=== PATIENT | female | born 2000 | race Two or more races ===

== ENCOUNTER 2025-08-11 14:05 | Outpatient (CLI) | payer OTHER ==
[2025-08-11 13:05] VITALS: BP 111/67
[~2025-08-11 14:05] MED LIST: ACETAMINOPHEN500 M1 PO; GILTUSS HONEY118 ML PO; MACROBID 100 M100 MG PO; MECLIZINE HCL25 MG PO; PEPCID AC20 MG PO; PROTONIX40 MG PO; ZOFRAN8 MG PO
[2025-08-11] MEDS ORDERED: RINGERS SOLUTION,LACTATED 1,000 ML IV SCH (14:30)
[2025-08-11 14:49] LABS: BASO % 0.2 % (0.1-1.2); EOS # 0.16 (0.04-0.54); EOS % 1.5 % (0.7-7.0); LYMPH # 1.71 (1.18-3.74); LYMPH % 15.8 % (19.3-53.1); MEAN PLATELET VOLUME 10.00 fl (9.4-12.4); MONO # 0.83 (0.24-0.82); MONO % 7.7 % (4.7-12.5); NEUT # 7.96 (1.56-6.13); NEUT % 73.7 % (34.0-71.1); RED CELL DISTRIBUTION WIDTH 12.8 % (11.6-14.4)
[2025-08-11 15:12] LABS: URINE APPEARANCE Cloudy; URINE BILIRRUBIN Negative (NEGATIVE); URINE BLOOD Trace; URINE COLOR Yellow; URINE GLUCOSE Negative (NEGATIVE); URINE KETONE Negative (NEGATIVE); URINE LEUKOCYTE Large; URINE NITRATE Negative; URINE PROTEIN Trace (NEGATIVE); URINE UROBILINOGEN 0.2 E.U./dl
[2025-08-11 15:13] LABS: URINE EPITHELIAL CELLS 124.4 uL (0.0-38.8); URINE RBC 20.9 uL (0.0-20.8); URINE WBC 270.6 uL (0.0-23.2)
[2025-08-11 15:32] LABS: URINE BACTERIA > 9821.5 uL (0.0-1933); URINE CAST 0.29 uL (0.0-1.40)
[2025-08-11 15:33] LABS: URINE YEAST MANY /hpf
[2025-08-11 15:48] VITALS: BP 115/71
[2025-08-11 17:30] VITALS: BP 115/71
== END 2025-08-11 17:30 | disposition home or self-care (01) ==
LOC: OBS/DEL 14:05
PROVIDERS: ATTEND Obstetrics & Gynecology
DX: O36.8130 Decreased fetal movements, third trimester, not applicable or unspecified (principal); O26.849 Uterine size-date discrepancy, unspecified trimester; O36.60X0 Maternal care for excessive fetal growth, unspecified trimester, not applicable or unspecified; Z3A.34 34 weeks gestation of pregnancy

== ENCOUNTER 2025-09-19 21:22 | Outpatient (CLI) | payer OTHER ==
[~2025-09-19] VITALS: Ht 165.1 cm; Wt 106.6 kg
[2025-09-19 20:31] VITALS: BP 129/71
[2025-09-19] MEDS ORDERED: RINGERS SOLUTION,LACTATED 1,000 ML IV SCH (21:45)
[2025-09-19 21:52] LABS: URINE APPEARANCE Cloudy; URINE BILIRRUBIN Negative (NEGATIVE); URINE BLOOD Negative; URINE COLOR Yellow; URINE GLUCOSE Negative (NEGATIVE); URINE KETONE Negative (NEGATIVE); URINE LEUKOCYTE Small; URINE NITRATE Negative; URINE PROTEIN Negative (NEGATIVE); URINE UROBILINOGEN 0.2 E.U./dl
[2025-09-19 21:54] LABS: BASO % 0.3 % (0.1-1.2); EOS # 0.09 (0.04-0.54); EOS % 1.0 % (0.7-7.0); LYMPH # 1.80 (1.18-3.74); LYMPH % 19.8 % (19.3-53.1); MEAN PLATELET VOLUME 9.90 fl (9.4-12.4); MONO # 0.81 (0.24-0.82); MONO % 8.9 % (4.7-12.5); NEUT # 6.27 (1.56-6.13); NEUT % 69.1 % (34.0-71.1); RED CELL DISTRIBUTION WIDTH 14.1 % (11.6-14.4); URINE EPITHELIAL CELLS 103.8 uL (0.0-38.8); URINE RBC 44.4 uL (0.0-20.8); URINE WBC 237.8 uL (0.0-23.2)
[2025-09-19 22:05] LABS: URINE CAST 0.29 uL (0.0-1.40); URINE YEAST FEW /hpf
[2025-09-19] MEDS ORDERED: PRENATAL + DHA1 EACH PO (22:45)
[2025-09-19 23:22] VITALS: BP 113/72
[2025-09-20 03:55] VITALS: BP 121/67
[2025-09-20 07:54] VITALS: BP 136/69
[2025-09-20 10:25] VITALS: BP 90/53
[2025-09-20 15:13] VITALS: BP 106/56
[2025-09-20 19:32] VITALS: BP 126/77; O2SAT 99
== END 2025-09-20 19:32 | disposition home or self-care (01) ==
LOC: OBS/DEL 21:22
PROVIDERS: ATTEND Obstetrics & Gynecology
DX: O36.8130 Decreased fetal movements, third trimester, not applicable or unspecified (principal); O26.843 Uterine size-date discrepancy, third trimester; Z3A.38 38 weeks gestation of pregnancy

== ENCOUNTER 2025-09-26 17:19 | Inpatient (IN) | payer OTHER ==
[~2025-09-26] VITALS: Ht 165.1 cm; Wt 106.6 kg
[2025-09-26 16:59] VITALS: BP 110/63
[~2025-09-26 17:19] MED LIST changes: +PRENATAL + DHA1 EACH PO
[2025-09-26] MEDS ORDERED: AMPICILLIN SODIUM 2,000 MG VIAL IV STA (17:33)
[2025-09-26] MEDS ORDERED: RINGERS SOLUTION,LACTATED 1,000 ML IV SCH (17:45)
[2025-09-26 17:53] LABS: URINE APPEARANCE Cloudy; URINE BILIRRUBIN Negative (NEGATIVE); URINE BLOOD Moderate; URINE COLOR Yellow; URINE GLUCOSE Negative (NEGATIVE); URINE KETONE Trace (NEGATIVE); URINE LEUKOCYTE Trace; URINE NITRATE Negative; URINE PROTEIN Trace (NEGATIVE); URINE UROBILINOGEN 0.2 E.U./dl
[2025-09-26 17:54] LABS: BASO % 0.2 % (0.1-1.2); EOS # 0.06 (0.04-0.54); EOS % 0.6 % (0.7-7.0); LYMPH # 1.50 (1.18-3.74); LYMPH % 15.4 % (19.3-53.1); MEAN PLATELET VOLUME 10.20 fl (9.4-12.4); MONO # 0.77 (0.24-0.82); MONO % 7.9 % (4.7-12.5); NEUT # 7.30 (1.56-6.13); NEUT % 75.2 % (34.0-71.1); RED CELL DISTRIBUTION WIDTH 14.3 % (11.6-14.4); URINE BACTERIA 89.9 uL (0.0-1933); URINE EPITHELIAL CELLS 18.6 uL (0.0-38.8); URINE RBC 312.8 uL (0.0-20.8); URINE WBC 118.7 uL (0.0-23.2)
[2025-09-26 17:58] LABS: URINE CAST 0.14 uL (0.0-1.40)
[2025-09-26 18:13] LABS: INR < 0.93
[2025-09-26 18:18] LABS: ALT/SGPT 13.0 U/L (12-78); AST/SGOT 18.0 U/L (15-37); BILIRUBIN TOTAL 0.38 mg/dL (0.3-1.2); BUN CREA RATIO 15.0 (7.0-25.0); CREATININE SERUM 0.75 mg/dL (0.55-1.02); GFR 95.76; GLOBULINA 3.4 G/DL (2.4-3.5); GLUCOSE FASTING 89.0 mg/dL (65-100); OSMOLALITY SERUM 278.0 MOSM/KG (275-295)
[2025-09-26] MEDS ORDERED: MISOPROSTOL 25 MCG TABLET VAG STA (18:51)
[2025-09-26 21:00] VITALS: BP 109/72
[2025-09-26] MEDS ORDERED: AMPICILLIN SODIUM 1,000 MG VIAL IV SCH (21:00)
[2025-09-26] MEDS ORDERED: MORPHINE SULFATE 4 MG/ML CARTRIDGE IV ONE (21:30)
[2025-09-26 23:56] VITALS: BP 115/66
[2025-09-27] VITALS (8 sets, daily range): BP systolic 112–124; BP diastolic 56–76
[2025-09-27] MEDS ORDERED: ERYTHROMYCIN BASE OPHT 1GM EACH TUBE OP ONE (00:30)
[2025-09-27] MEDS ORDERED: LIDOCAINE HCL 1% 10ML VIAL IJ ONE (00:45)
[2025-09-27] MEDS ORDERED: OXYTOCIN 1,000 ML IV SCH ×2 (00:45→23:45)
[2025-09-27 07:23] LABS: BASO % 0.1 % (0.1-1.2); EOS # 0.01 (0.04-0.54); EOS % 0.1 % (0.7-7.0); LYMPH # 1.44 (1.18-3.74); LYMPH % 8.6 % (19.3-53.1); MEAN PLATELET VOLUME 10.40 fl (9.4-12.4); MONO # 1.21 (0.24-0.82); MONO % 7.2 % (4.7-12.5); NEUT # 13.94 (1.56-6.13); NEUT % 83.4 % (34.0-71.1); RED CELL DISTRIBUTION WIDTH 14.3 % (11.6-14.4)
[2025-09-27] MEDS ORDERED: DOCUSATE SODIUM 100MG CAP PO SCH (09:00)
[2025-09-27] MEDS ORDERED: GABAPENTIN 300 MG CAPSULE PO ONE (13:30)
[2025-09-27] MEDS ORDERED: OXYTOCIN 10 UNITS/ML VIAL IM STA (23:45)
[2025-09-27] MEDS ORDERED: CHLORHEXIDINE GLUCONATE 120 ML BOTTLE TOP SCH (23:45)
[2025-09-28 00:52] VITALS: BP 126/81
[2025-09-28 04:52] VITALS: BP 113/70
[2025-09-28 08:22] VITALS: BP 106/69
[2025-09-28] MEDS ORDERED: GABAPENTIN 300 MG CAPSULE PO ONE (14:30)
[2025-09-28 16:00] VITALS: BP 108/71
== END 2025-09-28 17:53 | disposition home or self-care (01) | DRG 807 ==
LOC: LDR 17:19 → OB/GYN 17:19
PROVIDERS: ADMIT Obstetrics & Gynecology; ATTEND Obstetrics & Gynecology
PROC: 10E0XZZ Delivery of Products of Conception, External Approach (ICD-10-PCS; principal; 2025-09-26)
PROC: 0KQM0ZZ Repair Perineum Muscle, Open Approach (ICD-10-PCS; 2025-09-26)
PROC: 4A1HXCZ Monitoring of Products of Conception, Cardiac Rate, External Approach (ICD-10-PCS; 2025-09-26)
DX: O70.1 Second degree perineal laceration during delivery (principal); Z37.0 Single live birth; Z3A.38 38 weeks gestation of pregnancy